=== PATIENT | female | born 1980 | race Hispanic/Latino ===

== ENCOUNTER 2020-02-12 17:55 | Emergency (ER) | payer OTHER ==
[~2020-02-12 17:55] MED LIST: Iopamidol-370 76% 500 ML 1 ML ONE
[2020-02-12] MEDS ORDERED: Morphine 4 MG/ML VIAL ONE (18:51)
[2020-02-12] MEDS ORDERED: Ondansetron PF 4 MG/2 ML Vial ONE (18:56)
[2020-02-12 18:57] LABS: #Basophils 0.1 thou/uL (0.0-0.2); #Eosinphils 0.1 thou/uL (0.0-0.7); #Lymphocytes 1.7 thou/uL (1.20-3.40); #Monocytes 0.6 thou/uL (0.11-0.59); #Neutrophils 11.3 thou/uL (1.40-6.50); %Basophils 0.7 % (0.0-1.0); %Eosinophils 0.4 % (0.0-10.0); %Monocytes 4.6 % (0.0-10.0); %Neutrophils 82.3 % (42.0-75.0); Hemoglobin 12.6 g/dL (12.0-16.0); Mean Corpuscular HGB CONC 34.7 g/dL (32.0-36.0); Mean Corpuscular Hemoglobin 32.1 pg (27.0-31.0); Mean Corpuscular Volume 92.4 fL (78.0-98.0); Mean Platelet Volume 7.8 fL (7.4-10.4); Platelet Count 301 thou/uL (130-400); Red Blood Cell (RBC) Count 3.91 mill/uL (4.20-5.40); White Blood Cell (WBC) Count 13.8 thou/uL (4.8-10.8)
[2020-02-12 19:06] LABS: BHCG - Serum Negative (NEGATIVE)
[2020-02-12 19:07] LABS: Pregs Control Background? CLEAR/WHITE (CLR/WHITE); Pregs Control Bar Appear? YES (CONTROL BAR)
[2020-02-12 19:21] LABS: ALT (SGPT) 17 U/L (8-55); AST (SGOT) 15 U/L (5-34); Albumin 4.1 g/dL (3.5-5.0); Alkaline Phosphatase 78 U/L (40-110); Anion Gap 15 mmol/L (10-20); BUN (Urea Nitrogen) 14 mg/dL (7.0-18.7); Bilirubin, Total 0.7 mg/dL (0.2-1.2); Calc. Creatinine Clearance 0 mL/min (70-130); Calcium 8.8 mg/dL (7.8-10.44); Carbon Dioxide 25 mmol/L (22-29); Chloride 101 mmol/L (98-107); Globulin 4.1 g/dL (2.4-3.5); Glucose 192 mg/dL (70-105); Lipase 19 U/L (8-78); Potassium 3.8 mmol/L (3.5-5.1); Protein, Total 8.2 g/dL (6.0-8.3); Sodium 137 mmol/L (136-145)
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
[2020-02-12 19:34] LABS: Bilirubin Negative (Negative); Blood, Urine Negative (Negative); Clarity Turbid (Clear); Glucose, Urine (Dipstick) 100 mg/dL (Negative); Ketone, Urine Negative (Negative); Leukocyte 250 Leu/uL (Negative); Nitrite Negative (Negative); Protein, Urine (Dipstick) 30 mg/dL (Neg-Trace); RBC/HPF 0-3 HPF (0-3); Specific Gravity, Urine 1.027 (1.002-1.036); WBC/HPF 21-50 HPF (0-3); pH, Urine 6.5 (5.0-9.0)
[2020-02-12 19:35] LABS: Bacteria/HPF 1+ HPF (None Seen)
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
[2020-02-12] MEDS ORDERED: Ketorolac Tromethamine 30 MG/ML VIAL ONE (20:51)
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
== END 2020-02-12 21:56 | disposition home or self-care (01) ==
LOC: ERS 17:55
DX: S09.90XA Unspecified injury of head, initial encounter (principal); S59.902A Unspecified injury of left elbow, initial encounter; M54.2 Cervicalgia; R07.89 Other chest pain; R10.31 Right lower quadrant pain; E10.9 Type 1 diabetes mellitus without complications; F17.210 Nicotine dependence, cigarettes, uncomplicated; Y04.8XXA Assault by other bodily force, initial encounter
CPT/HCPCS: 70450; 70486; 71045; 72125; 74177; 80053; 81003; 81015; 83690; 84703; 85025; 96374; 96375; J1885; J2270; J2405; Q9967